=== PATIENT | female | born 1935 | race Caucasian/White ===

== ENCOUNTER 2016-12-22 14:18 | Observation (INO) | payer OTHER ==
[~2016-12-22] VITALS: Ht 177.8 cm; Wt 75.3 kg
[~2016-12-22 14:18] MED LIST: ADULT LOW DOSE81 M1 PO; ALEVE; ALTACE5 MG PO; DIAZEPAM5 MG PO; HYDROCHLOROTH12.5 M1 PO; LEXAPRO10 MG PO; LOW DOSE ASPIRI81 M1 PO; METOPROLOL SUCC25 MG PO; NAPROSYN500 MG PO; RIVASTIGMINE1.5 MG PO; SYNTHROID50 MCG PO; TOPROL XL25 MG PO; TOPROL XL6.25 MG PO; VYTORIN 10-101 EACH PO; VYTORIN 10-801 EACH PO; ZOFRAN4 MG PO
[2016-12-22 16:25] LABS: EOSINOPHIL (%) 1.1 % (0-5); EOSINOPHIL COUNT 0.1 K/uL (0-0.3); HEMATOCRIT 43.1 % (36.0-46.0); IMMATURE GRANULOCYTE (%) 0.8 % (0.0-0.7); INSTRUMENT ABS NEUTROPHIL CT 3.9 K/uL; LYMPHOCYTE COUNT 0.9 K/uL (1.0-2.8); MCH 28.5 PG (29.0-34.0); MCHC 32.5 G/DL (30.0-36.0); MCV 87.6 FL (83-99); MEAN PLAT.VOLUME 9.9 uM^3 (9.5-12.4); MONOCYTE COUNT 0.5 K/uL (0-0.8); NEUTROPHIL COUNT 3.9 K/uL (1.8-6.4); PLATELET COUNT 146 K/uL (156-360); RBC DIS.WIDTH-CV 13.2 % (11.8-14.6); RBC DIS.WIDTH-SD 42.5 % (39-53); RED BLOOD COUNT 4.92 M/uL (3.80-5.20); WHITE BLOOD COUNT 5.3 K/uL (4.1-10.2)
[2016-12-22 16:34] LABS: CHLORIDE 106 mEq/L (99-109); SODIUM 141 mEq/L (136-147)
[2016-12-22 16:36] LABS: GLUCOSE 107 mg/dL (70-99)
[2016-12-22 16:38] LABS: ANION GAP 10 MEQ/L (2-14); TOTAL BILIRUBIN 0.5 mg/dL (0.0-1.0)
[2016-12-22 16:40] LABS: ALKALINE PHOSPHATASE 105 IU/L (3-129); GFR ESTIMATE (CALCULATED) > 59 mL/min/
[2016-12-22 16:41] LABS: UREA NITROGEN (BUN) 13 mg/dL (9-23)
[2016-12-22 16:44] LABS: LIPASE 27 U/L (1.0-51.0)
[2016-12-22 16:46] LABS: TROP-I INTERPRETATION NEGATIVE; TROPONIN-I < 0.01 ng/mL (0.0-0.30)
[2016-12-22 18:29] LABS: ADD MIUA? YES; BILIRUBIN NEGATIVE; BLOOD NEGATIVE; COLOR YELLOW ((YELLOW)); GLUCOSE (STRIP) NEGATIVE; KETONES 5; LEUKOCYTES NEGATIVE; NITRITE NEGATIVE; PROTEIN (STRIP) 30; UROBILINOGEN 0.2 MG/DL (0.2-1.0)
[2016-12-22] MEDS ORDERED: EXELON6 MG PO (18:56)
[2016-12-22] MEDS ORDERED: ALTACE2.5 MG PO (18:56)
[2016-12-22 18:59] LABS: RED BLOOD CELLS 0-5 /HPF (0-5); WHITE BLOOD CELLS 0-5 /HPF (0-5)
[2016-12-22] MEDS ORDERED: MEMANTINE HCL10 MG PO (18:59)
[2016-12-22 19:00] LABS: BACTERIA 1+ /HPF; EPITHELIAL CELLS RARE /HPF; MUCUS RARE /LPF; UCUL ADDED? NO
[2016-12-22] MEDS ORDERED: OMEPRAZOLE40 M1 PO (19:01)
[2016-12-22] MEDS ORDERED: ERGOCALCIF50000 UNIT PO (19:03)
[2016-12-22] MEDS ORDERED: DOMP10T PO (19:06)
[2016-12-22 21:06] LABS: HDL CHOLESTEROL 38 MG/DL (Desirable>=50); LDL CHOLESTEROL 200 mg/dL (Desirable<100); NON-HDL CHOLESTEROL 233 mg/dL (Desirable<160); TOTAL CHOLESTEROL 271 mg/dL (Desirable<200); TRIGLYCERIDES 164 MG/DL (Normal: <150)
[2016-12-22 22:24] VITALS: BP 190/82
[2016-12-22 23:00] VITALS: BP 143/65
[2016-12-23 03:57] VITALS: BP 135/63
[2016-12-23 07:18] LABS: Estimated Average Glucose 117 mg/dL (70-123); HEMOGLOBIN A1c (GLYCOHEMOGLOB) 5.7 % HGB (Below 5.7)
[2016-12-23 09:00] VITALS: BP 116/53
[2016-12-23 12:00] VITALS: BP 116/59
[2016-12-23] MEDS ORDERED: RAMIPRIL5 MG PO (15:21)
[2016-12-23] MEDS ORDERED: PRAVASTATIN SOD40 MG PO (15:21)
== END 2016-12-23 16:52 | disposition home or self-care (01) ==
LOC: EME 14:18 → EDOF 19:55 → 4EAST 19:55
PROVIDERS: Emergency Medicine; Hospitalist
DX: R00.1 Bradycardia, unspecified (principal); R42 Dizziness and giddiness; E78.5 Hyperlipidemia, unspecified; I10 Essential (primary) hypertension; I25.2 Old myocardial infarction; Z86.73 Personal history of transient ischemic attack (TIA), and cerebral infarction without residual deficits; Z79.82 Long term (current) use of aspirin; R11.10 Vomiting, unspecified; F03.90 Unspecified dementia, unspecified severity, without behavioral disturbance, psychotic disturbance, mood disturbance, and anxiety; I25.10 Atherosclerotic heart disease of native coronary artery without angina pectoris; Z85.72 Personal history of non-Hodgkin lymphomas; D61.818 Other pancytopenia; E03.9 Hypothyroidism, unspecified; Z95.5 Presence of coronary angioplasty implant and graft
CPT/HCPCS: 70450; 71010; 80053; 80061; 81003; 83036; 83690; 84443; 84484; 85025; 93005; 93306; 99281; 99285; G0378; J0360; J1644; J2405; J7040

== ENCOUNTER 2018-02-14 17:42 | Emergency (ER) | payer OTHER ==
[~2018-02-14] VITALS: Ht 154.9 cm; Wt 73.9 kg
[~2018-02-14 17:42] MED LIST changes: +ALTACE2.5 MG PO; +DOMP10T PO; +ERGOCALCIF50000 UNIT PO; +EXELON6 MG PO; +MEMANTINE HCL10 MG PO; +OMEPRAZOLE40 M1 PO; +PRAVASTATIN SOD40 MG PO; +RAMIPRIL5 MG PO
[2018-02-14 19:24] LABS: HEMATOCRIT 37.9 % (36.0-46.0); HEMOGLOBIN 12.7 G/DL (11.9-15.5); MCH 27.6 PG (29.0-34.0); MCHC 33.5 G/DL (30.0-36.0); MCV 82.4 FL (83-99); PLATELET COUNT 57 K/uL (156-360); RBC DIS.WIDTH-CV 13.1 % (11.8-14.6); RBC DIS.WIDTH-SD 39.4 % (39-53); WHITE BLOOD COUNT 5.1 K/uL (4.1-10.2)
[2018-02-14 19:42] LABS: ALBUMIN 3.7 G/DL (3.2-4.8); CHLORIDE 102 MEQ/L (99-109); DIRECT BILIRUBIN 0.1 mg/dL (0.0-0.3); POTASSIUM 3.8 MEQ/L (3.7-5.4); SODIUM 137 MEQ/L (136-147); TOTAL BILIRUBIN 0.5 MG/DL (0.0-1.0)
[2018-02-14 19:45] LABS: TROP-I INTERPRETATION NEGATIVE; TROPONIN-I < 0.01 ng/mL (0.0-0.30)
[2018-02-14 19:47] LABS: ALKALINE PHOSPHATASE 113 IU/L (3-129); ALT (GPT) 7 IU/L (3-49); AST (GOT) 13 IU/L (2-34); CREATININE 0.8 MG/DL (0.6-1.3); GFR ESTIMATE (CALCULATED) > 59 mL/min/; GLUCOSE 105 mg/dL (70-99); LIPASE 16 U/L (1.0-51.0); TOTAL PROTEIN 5.6 G/DL (6.4-8.3); UREA NITROGEN (BUN) 11 mg/dL (9-23)
[2018-02-14 20:25] LABS: APPEARANCE CLEAR ((CLEAR)); BILIRUBIN NEGATIVE; BLOOD NEGATIVE; COLOR YELLOW ((YELLOW)); GLUCOSE (STRIP) NEGATIVE; KETONES NEGATIVE; LEUKOCYTES NEGATIVE; NITRITE NEGATIVE; PROTEIN (STRIP) NEGATIVE; UCUL ADDED? NO; UROBILINOGEN 0.2 MG/DL (0.2-1.0)
[2018-02-14] MEDS ORDERED: ZOFRAN ODT4 MG PO (22:34)
[2018-02-14 22:41] VITALS: BP 157/75
== END 2018-02-14 22:52 | disposition home or self-care (01) ==
LOC: EME 17:42
PROVIDERS: Emergency Medicine
DX: R10.13 Epigastric pain (principal); R11.2 Nausea with vomiting, unspecified; R91.1 Solitary pulmonary nodule; C85.10 Unspecified B-cell lymphoma, unspecified site; I10 Essential (primary) hypertension; E78.5 Hyperlipidemia, unspecified; I25.10 Atherosclerotic heart disease of native coronary artery without angina pectoris; E03.9 Hypothyroidism, unspecified; F03.90 Unspecified dementia, unspecified severity, without behavioral disturbance, psychotic disturbance, mood disturbance, and anxiety; I25.2 Old myocardial infarction; Z79.82 Long term (current) use of aspirin; Z95.5 Presence of coronary angioplasty implant and graft; Z87.19 Personal history of other diseases of the digestive system; Z86.73 Personal history of transient ischemic attack (TIA), and cerebral infarction without residual deficits; Z87.442 Personal history of urinary calculi; Z90.49 Acquired absence of other specified parts of digestive tract; Z88.5 Allergy status to narcotic agent; Z88.8 Allergy status to other drugs, medicaments and biological substances
CPT/HCPCS: 71046; 74177; 76705; 80048; 80076; 81003; 82140; 83690; 84484; 85027; 93005; 99281; 99285; J2405; J3010; J7040

== ENCOUNTER 2018-02-21 03:12 | Emergency (ER) | payer OTHER ==
[~2018-02-21] VITALS: Ht 157.5 cm; Wt 73.8 kg
[~2018-02-21 03:12] MED LIST changes: +ZOFRAN ODT4 MG PO
[2018-02-21 04:24] LABS: HEMATOCRIT 38.2 % (36.0-46.0); HEMOGLOBIN 12.4 G/DL (11.9-15.5); MCH 27.1 PG (29.0-34.0); MCHC 32.5 G/DL (30.0-36.0); MCV 83.6 FL (83-99); PLATELET COUNT 139 K/uL (156-360); RBC DIS.WIDTH-CV 13.2 % (11.8-14.6); RBC DIS.WIDTH-SD 40.1 % (39-53); RED BLOOD COUNT 4.57 M/uL (3.80-5.20); WHITE BLOOD COUNT 9.5 K/uL (4.1-10.2)
[2018-02-21 04:40] LABS: ALBUMIN 3.9 g/dL (3.2-4.8)
[2018-02-21 04:41] LABS: CHLORIDE 102 mEq/L (99-109); SODIUM 138 mEq/L (136-147)
[2018-02-21 04:43] LABS: GLUCOSE 148 mg/dL (70-99); TOTAL PROTEIN 5.5 g/dL (6.4-8.3)
[2018-02-21 04:44] LABS: TROP-I INTERPRETATION NEGATIVE; TROPONIN-I < 0.01 ng/mL (0.0-0.30)
[2018-02-21 04:45] LABS: TOTAL BILIRUBIN 0.6 mg/dL (0.0-1.0)
[2018-02-21 04:46] LABS: ALKALINE PHOSPHATASE 127 IU/L (3-129)
[2018-02-21 04:47] LABS: GFR ESTIMATE (CALCULATED) 56 mL/min/
[2018-02-21 04:48] LABS: AST (GOT) 15 IU/L (2-34); UREA NITROGEN (BUN) 16 mg/dL (9-23)
[2018-02-21 04:50] LABS: ALT (GPT) 13 IU/L (3-49); LIPASE 29 U/L (1.0-51.0)
[2018-02-21 04:56] LABS: POTASSIUM 5.1 mEq/L (3.7-5.4)
[2018-02-21] MEDS ORDERED: ADULT SUPPOSIT1 EACH PR (06:27)
[2018-02-21 06:52] VITALS: BP 134/75
== END 2018-02-21 06:55 | disposition home or self-care (01) ==
LOC: EME → EDBD 03:12 → EME 06:55
PROVIDERS: Emergency Medicine
DX: K59.00 Constipation, unspecified (principal); I10 Essential (primary) hypertension; E78.5 Hyperlipidemia, unspecified; K31.84 Gastroparesis; F03.90 Unspecified dementia, unspecified severity, without behavioral disturbance, psychotic disturbance, mood disturbance, and anxiety; E03.9 Hypothyroidism, unspecified; I25.10 Atherosclerotic heart disease of native coronary artery without angina pectoris; I25.2 Old myocardial infarction; Z95.5 Presence of coronary angioplasty implant and graft; Z85.72 Personal history of non-Hodgkin lymphomas; Z87.442 Personal history of urinary calculi; Z86.73 Personal history of transient ischemic attack (TIA), and cerebral infarction without residual deficits; Z79.82 Long term (current) use of aspirin; Z88.5 Allergy status to narcotic agent
CPT/HCPCS: 74177; 80053; 81003; 83690; 84484; 85027; 86850; 86900; 86901; 93005; 99281; 99285